=== PATIENT | female | born 1995 | race Caucasian/White ===

== ENCOUNTER 2019-08-05 16:34 | Emergency (ER) | payer MEDICAID ==
[~2019-08-05] VITALS: Ht 167.6 cm; Wt 69.4 kg
[2019-08-05 16:48] VITALS: BP_SYST 152
--- NOTE | 2019-08-05 17:00 | NUR ---
Patient to ER bed H1 to gown for evaluation. Side rails up.
--- NOTE | 2019-08-05 17:15 | NUR ---
Pt brought by friend, A&Ox4, pt presents to ER with pain/burning with urination, skin pink and warm, cap refill <3, afebrile.
--- NOTE | 2019-08-05 17:16 | NUR ---
Lukasz ROGERS evaluating patient
[2019-08-05 17:42] VITALS: BP_SYST 101
--- NOTE | 2019-08-05 17:42 | NUR ---
Patient given written and verbal discharge instructions and verbalizes understanding. ER MD discussed with patient the results and treatment provided. Patient in stable condition. ID arm band removed. Rx of Nitrofurantoin ,Ibuprofen, Pyridium given. Patient educated on pain management and to follow up with PMD. Pain Scale 3/10 tolerable for patient . Opportunity for questions provided and answered. Medication side effect fact sheet provided.
== END 2019-08-05 17:42 | disposition home or self-care (01) ==
LOC: SED 16:34
DX: N39.0 Urinary tract infection, site not specified (principal)
CPT/HCPCS: 81002; 81025; 99283